=== PATIENT | female | born 1995 | race Caucasian/White ===

== ENCOUNTER → 2022-09-11 | Outpatient (CLI) | payer OTHER ==
--- NOTE | 2022-09-11 13:12 | US ---
EXAMINATION TYPE: Transabdominal DATE OF EXAM: 09/11/2022 12:41 PM COMPARISON: NONE CLINICAL HISTORY: Z36.89 ENCOUNTER FOR OTHER SPECIFIED SCREENING. early ob EXAM PERFORMED: OBTA EXAM MEASUREMENTS: GESTATIONAL AGE / DATING Physician Established: Not yet established Dates by LMP: (12 weeks/5 days) EDC: 03/21/2023 Dates by First Scan: No previous this is first scan Dates by Current Scan for: (12 weeks/4 days) EDC: 03/22/2023 MATERNAL ANATOMY Uterus: 11.2 x 11.1 x 5.8cm Right Ovary: not seen Left Ovary: 2.4 x 1.3 x 1.6cm Post CDS / Adnexa: wnl Presence of free fluid: no Presence of corpus luteal cyst: not seen Presence of subchorionic bleed: not seen GESTATION / SURVEY CRL: 6.1cm (12 weeks/4 days) MSD: wnl Yolk Sac (normal less than 6mm): not seen Heart Rate: 150 bpm Rhythm: Normal IUP: Viable IUP Age Appropriate Anatomy Cord Insertion: Visualized Limbs: Visualized Calvarium: Visualized Date of LMP: 06/14/2022 IMPRESSION: Single live intrauterine with ultrasound age of 12 weeks 4 days
== END | disposition home or self-care (01) ==
LOC: RADUSWWP 11:53
PROVIDERS: ATTEND Obstetrics & Gynecology
DX: Z36.89 Encounter for other specified antenatal screening (principal); Z3A.12 12 weeks gestation of pregnancy
CPT/HCPCS: 76801

== ENCOUNTER 2023-03-18 16:41 | Outpatient (CLI) | payer OTHER ==
[2023-03-18 18:11] VITALS: BP 145/77; PULSE 112; RESP 18; TEMP 96.4
--- NOTE | 2023-04-25 11:44 | P.MSEPDOC ---
Presenting Problems - Arrival Data Date of Arrival on Unit: 03/18/23 Time of Arrival on Unit: 16:41 Mode of Transport: Ambulatory - Complaint OB-Reason for Admission/Chief Complaint: Headache Comment: pt presents to triage for headache on the right side of her head with sinus pressure and neck pain, right epigastric pain, rating headache pain 8/10, Medical History - Information : 2 Para: 0 Term: 0 : 0 Abortions: Spontaneous or Elective: 0 Number of Living Children: 0 - Gestational Age Gestational Age by KATHARINE (wks/days): 39 Weeks and 4 Days Review of Systems - Review of Systems Constitutional: No problems Breast: No problems ENT: No problems Cardiovascular: No problems Respiratory: No problems Gastrointestinal: No problems Genitourinary: No problems Musculoskeletal: No problems Neurological: No problems Skin: No problems Vital Signs - Temperature Temperature: 96.4 F Temperature Source: Temporal Artery Scan - Pulse Right Brachial Pulse Rate: 112 Pulse Assessment Method: Automatic Cuff - Respirations Respiratory Rate: 18 Oxygen Delivery Method: Room Air O2 Sat by Pulse Oximetry: 98 - Blood Pressure Right Arm Blood Pressure: 145/77 Blood Pressure Mean: 99 Blood Pressure Source: Automatic Cuff Medical Screen Scoring - Uterine Contractions Intensity: Mild Resting: Soft to palpation - Assessment - Baby A Baseline FHR: 135 Heart Rate - NICHD Category: Category I (Normal) NST: Reactive Physician Notification - Physician Notified Physician Notified Date: 03/18/23 Physician Notified Time: 17:11 Physician: Alison Collins Order Received: Yes - Notification Comment Comment: pt's bp's wnl, discharged to ER if pt feels she needs to be seen for further evaluation after obtained reactive NST, pt was not wanting to go to ER and went home after discharge Maternal Triage Index - Maternal Triage Index Presenting for scheduled procedure w/no complaint: No - Stat/Priority 1 Stat Priority 1: No - Urgent/Priority 2 Urgent Priority 2: No - Prompt/Priority 3 Prompt Priority 3: Yes Criteria Met for Priority 3: pt presents to triage for headache on the right side of her head with sinus pressure and neck pain, right epigastric pain, rating headache pain 8/10, Disposition - Disposition OB Disposition: Triage, Discharge to home, Written follow up instructions reviewed Discharge Date: 03/18/23 Discharge Time: 17:50 I agree with the RN Medical Screening Exam: Yes Case reviewed; plan agreed upon as documented in EMR&OBIX.: Yes Diagnosis: HEADACHE, UNSPECIFIED
== END 2023-03-18 17:50 | disposition home or self-care (01) ==
LOC: FBPOP 16:41
PROVIDERS: ATTEND Obstetrics & Gynecology
DX: O26.893 Other specified pregnancy related conditions, third trimester (principal); O99.333 Smoking (tobacco) complicating pregnancy, third trimester; F17.200 Nicotine dependence, unspecified, uncomplicated; R51.9 Headache, unspecified; Z3A.39 39 weeks gestation of pregnancy
CPT/HCPCS: 59025; G0463; 99213

== ENCOUNTER 2023-03-24 15:45 | Inpatient (IN) | payer OTHER ==
[2023-03-24] MEDS ORDERED: TERBUTALINE 1 MG/ML VIAL SQ PRN (15:50)
[2023-03-24] MEDS ORDERED: OXYTOCIN 10 UNIT/ML 1 ML VIAL IM PRN (15:50)
[2023-03-24] MEDS ORDERED: METHYLERGONOVINE 0.2 MG/ML 1 ML AMP IM PRN (15:50)
[2023-03-24] MEDS ORDERED: CARBOPROST TROMETHAMINE 250 MCG/ML 1 ML AMP IM PRN (15:50)
[2023-03-24] MEDS ORDERED: miSOPROStoL 200 MCG TAB PO PRN (15:50)
[2023-03-24] MEDS ORDERED: TRANEXAMIC ACID IN NACL,ISO-OS 1,000 MG in EMPTY BAG 1 BAG IV PRN (15:50)
[2023-03-24] MEDS ORDERED: LIDOCAINE 0.5% (PF) 5 MG/ML (50 ML SDV) SQ PRN (15:50)
[2023-03-24] MEDS ORDERED: DINOPROSTONE 10 MG INSERT.ER VAGINAL ONE (15:52)
[2023-03-25 06:44] LABS: Anisocytosis Slight; Basophils # (A) 0.1 k/uL (0-0.2); Basophils % (A) 0 %; Eosinophils # (A) 0.3 k/uL (0-0.7); Eosinophils % (A) 2 %; HCT 31.7 % (34.0-46.0); HGB 10.5 gm/dL (11.4-16.0); Hypochromasia Moderate; Lymphocytes % (A) 18 %; MCH 25.4 pg (25.0-35.0); MCHC 33.2 g/dL (31.0-37.0); MCV 76.7 fL (80.0-100.0); Mean Platelet Volume 8.6; Microcytosis Slight; Monocytes # (A) 0.8 k/uL (0-1.0); Monocytes % (A) 5 %; Neutrophils # (A) 12.3 k/uL (1.3-7.7); Neutrophils % (A) 74 %; Platelet Count 366 k/uL (150-450); Poikilocytosis Slight; RBC 4.13 m/uL (3.80-5.40); RDW 16.3 % (11.5-15.5); WBC 16.7 k/uL (3.8-10.6)
[2023-03-25] MEDS ORDERED: OXYTOCIN 30 UNITS/500 ML NS 30 UNIT in SALINE 1 500ML.BAG IV SCH ×2 (06:45→17:15)
[2023-03-25] MEDS: LACTATED RINGERS 1,000 ML IV SCH ×3 (06:46→21:32)
[2023-03-25] MEDS ORDERED: ROPIVACAINE 5 MG/ML 20 ML AMPULE ONE (13:34)
[2023-03-25] MEDS ORDERED: SODIUM CHLORIDE 0.9% 100 ML BAG ONE (13:34)
[2023-03-25] MEDS ORDERED: fentaNYL (PF) 50 MCG/ML 5 ML AMP ONE (13:34)
[2023-03-25] MEDS ORDERED: HYDROCORTISONE 2.5% RECTAL CREAM 30 GM TUBE RECTAL PRN (17:07)
[2023-03-25] MEDS ORDERED: diphenhydrAMINE 50 MG CAP PO PRN (17:07)
[2023-03-25] MEDS ORDERED: SIMETHICONE 80 MG CHEWABLE PO PRN (17:07)
[2023-03-25] MEDS ORDERED: LANOLIN CREAM 5 GM TUBE TOPICAL PRN (17:07)
[2023-03-25] MEDS ORDERED: ZOLPIDEM 5 MG TAB PO PRN (17:07)
[2023-03-25] MEDS ORDERED: diphenhydrAMINE 50 MG/ML 1 ML VIAL IVP PRN ×2 (17:07)
[2023-03-25] MEDS ORDERED: diphenhydrAMINE 25 MG CAP PO PRN (17:07)
[2023-03-25] MEDS ORDERED: BENZOCAINE/MENTHOL SPRAY 1 GM/SPRAY AEROSOL TOPICAL PRN (17:07)
--- NOTE | 2023-03-25 17:09 | P.HPOB ---
History of Present Illness H&P Date: 03/24/23 Chief Complaint: induction of labor 28-year-old presents at 40 weeks and 4 days for induction of labor. Her cervix is closed, 50% effaced, -2 station. She is samy irregularly. heart tones 135 with moderate variability and reactive. Review of Systems All systems: negative Constitutional: Denies chills, Denies fever Eyes: denies blurred vision, denies pain Ears, nose, mouth and throat: Denies headache, Denies sore throat Cardiovascular: Denies chest pain, Denies shortness of breath Respiratory: Denies cough Gastrointestinal: Denies abdominal pain, Denies diarrhea, Denies nausea, Denies vomiting Genitourinary: Denies dysuria, Denies hematuria Musculoskeletal: Denies myalgias Integumentary: Denies pruritus, Denies rash Neurological: Denies numbness, Denies weakness Psychiatric: Denies anxiety, Denies depression Endocrine: Denies fatigue, Denies weight change Past Medical History Past Medical History: Asthma History of Any Multi-Drug Resistant Organisms: None Reported Past Surgical History: No Surgical Hx Reported Additional Past Surgical History / Comment(s): [place] teeth removal Past Anesthesia/Blood Transfusion Reactions: No Reported Reaction Past Psychological History: Bipolar Smoking Status: Former smoker Past Alcohol Use History: None Reported Past Drug Use History: None Reported Additional Drug Use History / Comment(s): CBD during Medications and Allergies Home Medications Medication Instructions Recorded Confirmed Type Vit No.179/Iron/Folic 1 tab PO DAILY 03/18/23 03/24/23 History [ Tablet] Allergies Allergy/AdvReac Type Severity Reaction Status Date / Time No Known Allergies Allergy Verified 03/24/23 15:49 Exam Osteopathic Statement: *. No significant issues noted on an osteopathic structural exam other than those noted in the History and Physical/Consult. Intake and Output 03/25/23 03/25/23 03/25/23 06:59 14:59 22:59 Intake Total 20.133 Balance 20.133 Intake: Intake, IV Titration 20.133 Amount Oxytocin 30 Units/500 ml 20.133 Ns 30 unit In Saline 1 500ml.bag @ Per Protocol IV .Q0M JADEN Rx#:[id number] Other: # Voids 1 # Bowel Movements 2 Heart: Regular rate and rhythm Lungs: Clear to auscultation bilaterally Abdomen: Soft, nontender Extremities: Negative Homans sign Results Result Diagrams: 03/25/23 06:36 Abnormal Lab Results - Last 24 Hours (Table) 03/25/23 Range/Units 06:36 WBC 16.7 H (3.8-10.6) k/uL Hgb 10.5 L (11.4-16.0) gm/dL Hct 31.7 L (34.0-46.0) % MCV 76.7 L (80.0-100.0) fL RDW 16.3 H (11.5-15.5) % Neutrophils # 12.3 H (1.3-7.7) k/uL Assessment and Plan (1) Encounter for induction of labor Current Visit: Yes Status: Acute Code(s): Z34.90 - ENCNTR FOR SUPRVSN OF NORMAL , UNSP, UNSP TRIMESTER SNOMED Code(s): 176578740 Plan: 1. Induction of labor with Cervidil tonight and then amniotomy and Pitocin in the morning 2. Anticipate normal vaginal delivery
--- NOTE | 2023-03-25 17:10 | P.PROBDLV ---
Vaginal Delivery Note - . Vaginal Delivery Note: 28-year-old presents at 40 weeks and 4 days for induction of labor. Her cervix is closed, 50% effaced, -2 station. She is saym irregularly. heart tones 135 with moderate variability and reactive. Cervidil was placed and 12 hours later when it was removed she was 17 m dilated, 50% effaced, and -2 station. Pitocin augmentation was started. Amniotomy performed at 7:15 AM clear fluid noted. When she was uncomfortable a 3 cm dilated she did get an epidural. Her cervix was completely dilated at 1617. She pushed, delivered a viable male over intact perineum under epidural anesthesia at 1648. Head delivered OA, anterior shoulder delivered gentle downward guidance of the posterior shoulder and rest of body. Nose and mouth bulb suctioned, cord clamped and cut, infant placed mother's abdomen. Apgars 7, 9, weight 7 lbs. 3 oz. Placenta delivered spontaneous, intact with three-vessel cord at 1650. Vagina, cervix, and perineum were inspected. First-degree midline laceration and bilateral labial lacerations were repaired with 3-0 Vicryl. Estimated blood loss 200 mL. Mother and baby in stable condition.
[2023-03-25] MEDS: IBUPROFEN 600 MG TAB PO PRN (17:28)
[2023-03-25] MEDS: SENNOSIDES-DOCUSATE SODIUM 1 EACH TAB PO SCH (19:45)
[2023-03-25] MEDS: ACETAMINOPHEN TAB 325 MG TAB PO PRN (19:45)
[2023-03-26] MEDS: IBUPROFEN 600 MG TAB PO PRN ×2 (00:56→07:55)
--- NOTE | 2023-03-26 07:18 | P.DS ---
Providers Date of admission: 03/24/23 15:45 Expected date of discharge: 03/26/23 Attending physician: Alison Collins Primary care physician: Stated None - Discharge Diagnosis(es) (1) Encounter for induction of labor Current Visit: Yes Status: Resolved (2) Normal vaginal delivery Current Visit: Yes Status: Acute Hospital Course: patient presented for induction of labor. She underwent normal vaginal delivery. course has been uneventful. She denies nausea, vomiting, chest pain, shortness of breath or calf pain. Her lochia is decreasing. Patient will be discharged home day #1 in stable condition to follow- up with me in 6 weeks. Plan - Discharge Summary New Discharge Prescriptions: New Ibuprofen [Motrin] 600 mg PO Q6HR PRN #30 tab PRN Reason: Mild Pain (Scale 1 To 3) No Action Vit No.179/Iron/Folic [ Tablet] 1 tab PO DAILY Discharge Medication List Vit No.179/Iron/Folic [ Tablet] 1 tab PO DAILY 03/18/23 [History] Ibuprofen [Motrin] 600 mg PO Q6HR PRN #30 tab 03/26/23 [Rx] Follow up Appointment(s)/Referral(s): Alison Collins DO [Doctor of Osteopathic Medicine] - 05/04/23 3:45 pm Discharge Disposition: HOME SELF-CARE
[2023-03-26] MEDS: SENNOSIDES-DOCUSATE SODIUM 1 EACH TAB PO SCH (07:56)
[2023-03-26 08:20] LABS: Anisocytosis Slight; Basophils % (A) 0 %; Eosinophils # (A) 0.1 k/uL (0-0.7); Eosinophils % (A) 1 %; HCT 29.2 % (34.0-46.0); HGB 9.1 gm/dL (11.4-16.0); Hypochromasia Moderate; Lymphocytes # (A) 2.9 k/uL (1.0-4.8); Lymphocytes % (A) 13 %; MCH 24.1 pg (25.0-35.0); MCHC 31.1 g/dL (31.0-37.0); MCV 77.3 fL (80.0-100.0); Mean Platelet Volume 8.6; Microcytosis Slight; Monocytes % (A) 4 %; Neutrophils # (A) 18.3 k/uL (1.3-7.7); Neutrophils % (A) 81 %; Platelet Count 354 k/uL (150-450); Poikilocytosis Slight; RBC 3.78 m/uL (3.80-5.40); RDW 16.5 % (11.5-15.5); WBC 22.7 k/uL (3.8-10.6)
[2023-03-26] MEDS: LACTATED RINGERS 1,000 ML IV SCH (09:49)
[2023-03-26] MEDS: ACETAMINOPHEN TAB 325 MG TAB PO PRN (12:04)
[2023-03-26 13:03] VITALS: RESP 18
[2023-03-26 16:13] VITALS: BP 121/55; PULSE 97; TEMP 98.6
== END 2023-03-26 18:30 | disposition home or self-care (01) | DRG 560 ==
LOC: 4FBP 15:45
PROVIDERS: ADMIT Obstetrics & Gynecology; ATTEND Obstetrics & Gynecology
PROC: 10907ZC Drainage of Amniotic Fluid, Therapeutic from Products of Conception, Via Natural or Artificial Opening (ICD-10-PCS; 2023-03-24)
PROC: 3E033VJ Introduction of Other Hormone into Peripheral Vein, Percutaneous Approach (ICD-10-PCS; 2023-03-24)
PROC: 10E0XZZ Delivery of Products of Conception, External Approach (ICD-10-PCS; principal; 2023-03-25)
PROC: 0HQ9XZZ Repair Perineum Skin, External Approach (ICD-10-PCS; 2023-03-25)
DX: O48.0 Post-term pregnancy (principal); O99.52 Diseases of the respiratory system complicating childbirth; J45.909 Unspecified asthma, uncomplicated; O70.0 First degree perineal laceration during delivery; Z37.0 Single live birth; Z3A.40 40 weeks gestation of pregnancy; Z87.891 Personal history of nicotine dependence
CPT/HCPCS: 85025; 86850; 86900; 86901

== ENCOUNTER → 2024-01-04 | Outpatient (CLI) | payer OTHER ==
--- NOTE | 2024-01-04 15:05 | US ---
EXAMINATION TYPE: Transabdominal DATE OF EXAM: 01/04/2024 12:57 PM COMPARISON: NONE CLINICAL INDICATION: Female, 28 years old with history of Z34.90 ENCNTR FOR SUPRVSN OF NORMAL PREGNAN CY, UNS; Confirm Dates EXAM PERFORMED: Transabdominal (TA) EXAM MEASUREMENTS: GESTATIONAL AGE / DATING Physician Established: (14 weeks/2 days) EDC: 07/02/2024 Dates by LMP: (14 weeks/2 days) EDC: 07/02/2024 Dates by First Scan: No previous this is first scan Dates by Current Scan for: (14 weeks/0 days) EDC: 07/04/2024 MATERNAL ANATOMY Uterus: 14.4 x 7.7 x 10.8 cm Right Ovary: 2.7 x 1.9 x 2.6 cm Left Ovary: 2.2 x 1.3 x 2.3 cm Post CDS / Adnexa: wnl Presence of free fluid: No Presence of subchorionic bleed: No GESTATION / SURVEY CRL: 8.0 cm (14 weeks/0 days) MSD: wnl Heart Rate: 160 bpm Rhythm: Normal IUP: Viable IUP Nuchal Translucency 10-14wks (normal less than 3mm): 1mm Limbs: Visualized Single, viable IUP- No abnormality visualized at this time IMPRESSION: 1. Single live intrauterine with a gestational age of 14 weeks 0 days based on this ultraso und.
== END | disposition home or self-care (01) ==
LOC: RADUSWWP 12:21
PROVIDERS: ATTEND Obstetrics & Gynecology
DX: Z34.90 Encounter for supervision of normal pregnancy, unspecified, unspecified trimester (principal)
CPT/HCPCS: 76801; 76813

== ENCOUNTER → 2024-02-10 | Outpatient (CLI) | payer OTHER ==
--- NOTE | 2024-02-10 18:33 | US ---
EXAMINATION TYPE: US OB anatomy transabd DATE OF EXAM: 02/10/2024 COMPARISON: NONE CLINICAL INDICATION: Female, 28 years old with history of Z34.90 ENCNTR FOR SUPRVSN OF NORMAL PREGNAN CY, UNS; Anatomy TECHNIQUE: Transabdominal (TA) EXAM MEASUREMENTS: GESTATIONAL AGE / DATING Dates by LMP: (19 weeks/4 days) EDC: 07/02/2024 Dates by First Scan: (19 weeks/2 days) EDC: 07/04/2024 Dates by Current Scan for: (19 weeks/1 days) EDC: 07/05/2024 SURVEY IUP: Single PLACENTA: Anterior PREVIA: No previa seen today CARLOS: 12.8 cm Normal CERVICAL LENGTH (transabdominal: norm > 3.0cm): 4.2 cm BIOMETRY PRESENTATION: Variable LIE: Variable BPD: 4.4 cm 19 weeks / 3 days HC: 16.2 cm 19 weeks / 0 days AC: 13.5 cm 19 weeks / 0 days FL: 2.9 cm 19 weeks / 1 days ESTIMATED WEIGHT IN GRAMS: 268 grams ESTIMATED WEIGHT IN LBS/OZ: 0 lbs. 9 oz. WEIGHT PERCENTAGE BASED ON ESTABLISHED DATE: 29% % HC/AC: 1.2 Normal FL/AC: 22% Normal HEART RATE: 149 bpm RHYTHM: Normal ANATOMY SEEN (within normal limits): * Lateral Vent (< 1 cm) 0.8 cm * Cisterna Magna (< 1.1 cm) 0.5 cm * Nuchal Fold (< 0.6 cm) 0.4 cm * Cerebellum (varies with age) 2.1 cm Choroid Plexus (bilateral) Midline Falx Cavus Septi Pellucidi Four Chamber Heart Outflow tracts: LVOT/RVOT Stomach Situs Nose / Lips Diaphragm Kidneys (bilateral) Bladder Cord Insert Three Vessel Cord Longitudinal Spine Transverse Spine Arms (bilateral) Legs (bilateral) ANATOMY SEEN (does not appear within normal limits): ANATOMY NOT SEEN: IMPRESSION: Single live intrauterine gestation of age of 19 weeks 1 day.
== END | disposition home or self-care (01) ==
LOC: RADUSWWP 13:18
PROVIDERS: ATTEND Obstetrics & Gynecology
DX: Z34.92 Encounter for supervision of normal pregnancy, unspecified, second trimester (principal); Z3A.20 20 weeks gestation of pregnancy
CPT/HCPCS: 76811

== ENCOUNTER 2024-03-04 19:32 | Outpatient (CLI) | payer OTHER ==
[2024-03-04 21:57] VITALS: BP 134/88; PULSE 85; RESP 17; TEMP 97.4
--- NOTE | 2024-03-27 09:27 | P.MSEPDOC ---
Presenting Problems - Arrival Data Date of Arrival on Unit: 03/04/24 Time of Arrival on Unit: 19:32 Mode of Transport: EMS - Complaint OB-Reason for Admission/Chief Complaint: Other Comment: Sent from [facility] with right flank pain, right groin pain, cramping, w/ hx of uti and diarrhea x 3 days Medical History - Information : 3 Para: 1 Term: 1 : 0 Abortions: Spontaneous or Elective: 1 Number of Living Children: 1 - Gestational Age Gestational Age by KATHARINE (wks/days): 22 Weeks and 4 Days Review of Systems - Review of Systems Constitutional: No problems Breast: No problems ENT: No problems Cardiovascular: No problems Respiratory: No problems Gastrointestinal: No problems Genitourinary: No problems Musculoskeletal: No problems Neurological: No problems Skin: No problems Vital Signs - Temperature Temperature: 97.4 F Temperature Source: Temporal Artery Scan - Pulse Right Pulse Rate: 85 Pulse Assessment Method: Pulse Oximetry - Respirations Respiratory Rate: 17 Oxygen Delivery Method: Room Air O2 Sat by Pulse Oximetry: 97 - Blood Pressure Right Arm Blood Pressure: 134/88 Blood Pressure Mean: 103 Blood Pressure Source: Automatic Cuff Medical Screen Scoring - Assessment - Baby A Baseline FHR: 150 Physician Notification - Physician Notified Physician Notified Date: 03/04/24 Physician Notified Time: 20:17 Physician: Mona Salmon New Order Received: Yes - Notification Comment Comment: Cervical exam, U/S r kidney (declined by pt) Maternal Triage Index - Maternal Triage Index Presenting for scheduled procedure w/no complaint: No - Stat/Priority 1 Stat Priority 1: No - Urgent/Priority 2 Urgent Priority 2: No - Prompt/Priority 3 Prompt Priority 3: No - Non-Urgent/Priority 4 Non-Urgent Priority 4: Yes Criteria Met for Priority 4: flank and groin pain, diarrhea, hx uti on abtibiotic Disposition - Disposition OB Disposition: Discharge to home Discharge Date: 03/04/24 Discharge Time: 20:40 I agree with the RN Medical Screening Exam: Yes Case reviewed; plan agreed upon as documented in EMR&OBIX.: Yes Diagnosis: RELATED CONDITIONS, UNSPECIFIED, SECOND TRIMESTER
== END 2024-03-04 20:40 | disposition home or self-care (01) ==
LOC: FBPOP 19:32
PROVIDERS: ATTEND Obstetrics & Gynecology Obstetrics
DX: O26.92 Pregnancy related conditions, unspecified, second trimester (principal); R10.31 Right lower quadrant pain; O99.332 Smoking (tobacco) complicating pregnancy, second trimester; F17.200 Nicotine dependence, unspecified, uncomplicated; Z87.440 Personal history of urinary (tract) infections; Z87.19 Personal history of other diseases of the digestive system; Z3A.22 22 weeks gestation of pregnancy
CPT/HCPCS: 99213

== ENCOUNTER → 2024-05-23 | Outpatient (CLI) | payer OTHER ==
--- NOTE | 2024-05-24 11:24 | US ---
EXAMINATION TYPE: US OB anatomy transabd DATE OF EXAM: 05/23/2024 COMPARISON: NONE CLINICAL INDICATION: Female, 29 years old with history of O24.415 WITH GESTATIONAL DIABETES ; TECHNIQUE: Transvaginal (TV) and Transabdominal (TA) EXAM MEASUREMENTS: GESTATIONAL AGE / DATING Physician Established: (34 weeks/3 days) EDC: 07/01/2024 Dates by Current Scan for: (32 weeks/6 days) EDC: 07/12/2024 SURVEY IUP: Single PLACENTA: Anterior PREVIA: No previa CARLOS: 15.9 cm Normal CERVICAL LENGTH (transabdominal: norm > 3.0cm): 3.6 cm CERVICAL LENGTH (transvaginal: norm> 2.5cm): 4.4 cm (Supplemental transvaginal imaging performed to verify cervical length.) BIOMETRY PRESENTATION: Vertex LIE: Longitudinal BPD: 8.25 cm 33 weeks / 1 days HC: 30.35 cm 33 weeks / 5 days AC: 28.23 cm 32 weeks / 2 days FL: 6.44 cm 33 weeks / 2 days ESTIMATED WEIGHT IN GRAMS: 2048 grams ESTIMATED WEIGHT IN LBS/OZ: 4 lbs. 8 oz. WEIGHT PERCENTAGE BASED ON ESTABLISHED DATE: 9 % HC/AC: 1.08 Normal FL/AC: 22.82 Normal HEART RATE: 129 bpm RHYTHM: Normal ANATOMY SEEN (within normal limits): Four Chamber Heart Stomach Situs Nose / Lips Kidneys (bilateral) Bladder Longitudinal Spine Arms (bilateral) Legs (bilateral) ANATOMY SEEN (does not appear within normal limits): All anatomy seen on prior exams and appeared WNL ANATOMY NOT SEEN: All anatomy seen on prior exams and appeared WNL * Lateral Vent (< 1 cm) * Cisterna Magna (< 1.1 cm) * Nuchal Fold (< 0.6 cm) * Cerebellum (varies with age) Choroid Plexus (bilateral) Midline Falx Cavus Septi Pellucidi Outflow tracts: LVOT/RVOT Diaphragm Cord Insert Three Vessel Cord Transverse Spine IMPRESSION: 1. Viable 32 weeks 6 days with an heart rate of 129 bpm. 2. Limited assessment of anatomy due to advanced gestational age.
== END | disposition home or self-care (01) ==
LOC: RADUSWWP 14:30
PROVIDERS: ATTEND Obstetrics & Gynecology
DX: O24.415 Gestational diabetes mellitus in pregnancy, controlled by oral hypoglycemic drugs (principal); Z3A.32 32 weeks gestation of pregnancy
CPT/HCPCS: 76811; 76817